=== PATIENT | male | born 1965 | race Caucasian/White ===

== ENCOUNTER 2021-04-04 15:37 | Emergency (ER) | payer SELFPAY ==
[~2021-04-04] VITALS: Ht 190.5 cm; Wt 81.8 kg
[2021-04-04 15:40] VITALS: BP 145/98
[2021-04-04 16:46] LABS: BASOPHILS # (AUTO) 0.1 X10'3 (0-0.2); BASOPHILS % (AUTO) 0.6 % (0-1); EOSINOPHILS # (AUTO) 0.1 X10'3 (0-0.9); HEMATOCRIT 47.2 % (42.0-52.0); HEMOGLOBIN 16.1 g/dl (14.0-17.9); LYMPHOCYTES # (AUTO) 1.1 X10'3 (1.1-4.8); LYMPHOCYTES % (AUTO) 12.9 % (21-51); MEAN CORPUSCULAR HEMOGLOBIN 31.6 PG (27.0-31.0); MEAN PLATELET VOLUME 8.6 FL (7.4-10.4); MONOCYTES # (AUTO) 0.7 X10'3 (0-0.9); MONOCYTES % (AUTO) 7.8 % (2-12); NEUTROPHILS # (AUTO) 6.8 X10'3 (1.8-7.7); NEUTROPHILS % (AUTO) 77.7 % (42-75); PLATELET COUNT 225 X10'3 (140-440); RED BLOOD COUNT 5.08 X10'6 (4.70-6.10); RED CELL DISTRIBUTION WIDTH 13.4 % (11.5-14.5); WHITE BLOOD COUNT 8.8 X10'3 (4.5-11.0)
[2021-04-04 17:00] LABS: ALANINE AMINOTRANSFERASE 32 U/L (12-78); ALBUMIN 3.9 G/DL (3.4-5.0); ALBUMIN/GLOBULIN RATIO 0.9 (1.1-1.5); ALKALINE PHOSPHATASE 89 IU/L (46-116); ANION GAP 9 (8-16); ASPARTATE AMINO TRANSFERASE 27 U/L (10-37); BILIRUBIN,TOTAL 0.9 MG/DL (0.1-1.0); BLOOD UREA NITROGEN 27 MG/DL (7-18); BUN/CREATININE RATIO 25.2 (5.4-32.0); CALCIUM 8.7 MG/DL (8.5-10.1); CHLORIDE 108 MMOL/L (99-107); CREATININE 1.07 MG/DL (0.60-1.10); GLUCOSE 106 MG/DL (70-104); LIPASE 605 U/L (73-393); POTASSIUM 4.4 MMOL/L (3.5-5.1); SODIUM 144 MMOL/L (135-145); TOTAL CARBON DIOXIDE 26.8 MMOL/L (24-32); TOTAL PROTEIN 8.1 G/DL (6.4-8.2); eGFR 71 ML/MIN
[2021-04-04] MEDS ORDERED: MAGN296S68 PO (18:57)
[2021-04-04] MEDS ORDERED: BISA-78 PO (18:57)
== END 2021-04-04 19:13 | disposition home or self-care (01) ==
LOC: ER 15:38
DX: K59.00 Constipation, unspecified (principal)
CPT/HCPCS: 36415; 74018; 80053; 83690; 85025; 99284

== ENCOUNTER 2021-05-30 12:59 | Emergency (ER) | payer SELFPAY ==
[~2021-05-30] VITALS: Ht 190.5 cm; Wt 81.8 kg
[~2021-05-30 12:59] MED LIST: BISA-78 PO; MAGN296S68 PO
[2021-05-30 13:18] VITALS: BP 149/93
[2021-05-30] MEDS ORDERED: DOCU-148 PO (15:41)
[2021-05-30] MEDS ORDERED: magnesium citrate 296ml oral solution PO ONE (15:45)
== END 2021-05-30 15:53 | disposition home or self-care (01) ==
LOC: ER 13:06
DX: K59.00 Constipation, unspecified (principal); Z56.0 Unemployment, unspecified
CPT/HCPCS: 99282

== ENCOUNTER 2022-10-04 03:05 | Emergency (ER) | payer SELFPAY ==
[~2022-10-04] VITALS: Ht 190.5 cm; Wt 83.0 kg
[~2022-10-04 03:05] MED LIST changes: +DOCU-148 PO
[2022-10-04 03:12] VITALS: BP 181/111
--- NOTE | 2022-10-04 03:32 | NUR ---
dressing cleaned with wound clenz dressing applied to puncture wound area
== END 2022-10-05 07:01 | disposition home or self-care (01) ==
LOC: ER 03:05
DX: S69.92XA Unspecified injury of left wrist, hand and finger(s), initial encounter (principal); X58.XXXA Exposure to other specified factors, initial encounter; Y93.89 Activity, other specified; Y92.89 Other specified places as the place of occurrence of the external cause; Y99.8 Other external cause status
CPT/HCPCS: 99284

== ENCOUNTER 2023-04-15 13:39 | Emergency (ER) | payer MEDICAID ==
[~2023-04-15] VITALS: Ht 190.5 cm; Wt 86.4 kg
[2023-04-15 14:16] LABS: BASOPHILS % (AUTO) 0.6 % (0-1); EOSINOPHILS # (AUTO) 0.2 X10'3 (0-0.9); EOSINOPHILS % (AUTO) 4.3 % (0-6); HEMOGLOBIN 16.1 g/dl (14.0-17.9); LYMPHOCYTES # (AUTO) 1.2 X10'3 (1.1-4.8); LYMPHOCYTES % (AUTO) 22.6 % (21-51); MEAN CORPUSCULAR HEMOGLOBIN 31.2 PG (27.0-31.0); MEAN CORPUSCULAR HGB CONC 33.6 g/dL (33.0-36.5); MEAN CORPUSCULAR VOLUME 92.8 FL (78-98); MEAN PLATELET VOLUME 8.3 FL (7.4-10.4); MONOCYTES # (AUTO) 0.6 X10'3 (0-0.9); MONOCYTES % (AUTO) 11.2 % (2-12); NEUTROPHILS # (AUTO) 3.2 X10'3 (1.8-7.7); NEUTROPHILS % (AUTO) 61.3 % (42-75); PLATELET COUNT 194 X10'3 (140-440); RED BLOOD COUNT 5.17 X10'6 (4.70-6.10); RED CELL DISTRIBUTION WIDTH 13.6 % (11.5-14.5); WHITE BLOOD COUNT 5.3 X10'3 (4.5-11.0)
[2023-04-15 14:49] LABS: ALANINE AMINOTRANSFERASE 25 U/L (12-78); ALBUMIN 3.4 G/DL (3.4-5.0); ALBUMIN/GLOBULIN RATIO 0.9 (1.1-1.5); ALKALINE PHOSPHATASE 83 IU/L (46-116); ANION GAP 9 (8-16); ASPARTATE AMINO TRANSFERASE 24 U/L (10-37); BILIRUBIN,TOTAL 0.6 MG/DL (0.1-1.0); BLOOD UREA NITROGEN 16 MG/DL (7-18); BUN/CREATININE RATIO 14.7 (10.0-20.0); CALCIUM 9.2 MG/DL (8.5-10.1); CHLORIDE 103 MMOL/L (99-107); CREATININE 1.09 MG/DL (0.60-1.10); GLUCOSE 129 MG/DL (70-104); POTASSIUM 3.9 MMOL/L (3.5-5.1); SODIUM 134 MMOL/L (135-145); TOTAL CARBON DIOXIDE 21.8 MMOL/L (24-32); TOTAL PROTEIN 7.1 G/DL (6.4-8.2); eCRCL 88 ML/MIN; eGFR 69 ML/MIN
[2023-04-15 14:55] LABS: PRO BRAIN NATRIURETIC PEPTIDE 44 PG/ML (0-125)
[2023-04-15 19:53] VITALS: BP 156/99; PULSE 69; RESP 17; O2SAT 98
[2023-04-15] MEDS ORDERED: PANT20TA18 PO (20:01)
[2023-04-15 20:19] VITALS: TEMP 97.9
--- NOTE | 2023-04-15 21:33 | NUR ---
REVIEWED LVNS ASSESSMENT, AGREE WITH ASSESSMENT.
== END 2023-04-15 20:21 | disposition home or self-care (01) ==
LOC: ER 13:39
DX: R12 Heartburn (principal); R07.89 Other chest pain; Z79.899 Other long term (current) drug therapy
CPT/HCPCS: 36415; 71045; 80053; 83880; 84484; 85025; 93005; 99285

== ENCOUNTER 2024-08-17 07:34 | Emergency (ER) | payer MEDICAID ==
[~2024-08-17] VITALS: Ht 190.5 cm; Wt 87.1 kg
[~2024-08-17 07:34] MED LIST changes: +PANT20TA18 PO
[2024-08-17 07:38] VITALS: BP 149/77; PULSE 85; O2SAT 100
[2024-08-17 07:49] VITALS: RESP 16
[2024-08-17] MEDS ORDERED: CODE10LI2 PO (09:38)
[2024-08-17] MEDS: guaiFENesin 200mg/20mg codeine phos 10ml UD oral syrup PO ONE (10:07)
[2024-08-17 10:11] VITALS: TEMP 98.1
== END 2024-08-17 10:15 | disposition home or self-care (01) ==
LOC: ER 07:35
DX: B34.9 Viral infection, unspecified (principal); Z98.890 Other specified postprocedural states; Z79.899 Other long term (current) drug therapy; Z56.0 Unemployment, unspecified; Z72.89 Other problems related to lifestyle
CPT/HCPCS: 71045; 87502; 87503; 99284